=== PATIENT | female | born 1930 | race Caucasian/White ===

== ENCOUNTER 2018-07-22 18:40 | Inpatient (IN) | payer OTHER ==
[~2018-07-22] VITALS: Ht 157.5 cm; Wt 47.2 kg
[~2018-07-22 18:40] MED LIST: ADVIL200 MG PO; AMLODIPINE BES2.5 M1 PO; APAP/HYDROCODON1 T13 PO; ASPIR-LOW81 M1 PO; ASPIRIN81 MG PO; ATENOLOL100 MG PO; ATENOLOL25 MG; ATENOLOL25 MG PO; CLARITIN10 MG; CLARITIN10 MG PO; COL100 PO; COLACE100 MG PO; COQ10 IN OIL1 SGL PO; COZ50 PO; COZAAR25 MG PO; ESCITALOPRAM10 M1 PO; FER300 PO; FERROUS SULFAT325 M2 PO; GLU500 PO; GLUCOSE PO; IBUPROFEN400 MG PO; LAC PO; LEVAQUIN750 MG PO; LEXAPRO10 MG PO; LOSARTAN POTASS25 M1 PO; METFORMIN ER500 M1 PO; NAMENDA10 M2 PO; NOR10 PO; NORCO1 TA2 PO; PRI20 PO; PROTONIX20 MG PO; SIMVASTATIN10 M1 PO; TEN50 PO; TENORMIN25 MG; TRE400 PO; VITAMIN D32000 I2 PO; ZOC20 PO
[2018-07-22 18:41] VITALS: Ht 157.5 cm; Wt 47.2 kg
[2018-07-22 19:56] LABS: BASOPHIL % 0.3 % (0-2)
[2018-07-22 19:58] LABS: PLATELET COUNT 484 x10^3mcL (130-400); RED CELL DISTRIBUTION WIDTH 23.2 % (11.5-14.5)
[2018-07-22 20:15] LABS: ALKALINE PHOSPHATASE 99 U/L (46-116); ALT/SGPT 9 U/L (14-59); AST/SGOT 27 U/L (15-37); BILIRUBIN TOTAL 0.29 mg/dL (0.20-1.00); CALCIUM 9.5 mg/dL (8.5-10.1); CHLORIDE SERUM 101 mmol/L (98-107); GLUCOSE SERUM 118 mg/dL (74-106); SODIUM SERUM 139 mmol/L (136-145); TOTAL PROTEIN, SERUM 6.8 g/dL (6.4-8.2)
[2018-07-22 20:18] LABS: ALBUMIN 2.5 g/dL (3.4-5.0)
[2018-07-22 20:19] LABS: POTASSIUM SERUM 6.3 mmol/L (3.5-5.1)
[2018-07-22 20:20] LABS: CREATININE SERUM 5.7 mg/dL (0.6-1.0)
[2018-07-22 20:30] LABS: CARBON DIOXIDE < 5.0 mmol/L (21-32)
[2018-07-22 20:40] LABS: LIPASE 3326 IU/L (73-393)
[2018-07-22] MEDS ORDERED: CRANBERRY500 M1 (22:40)
[2018-07-22] MEDS ORDERED: NEU300 PO (22:41)
[2018-07-22] MEDS ORDERED: ACETAMINOP160 MG/52 PO (22:42)
[2018-07-22] MEDS ORDERED: LORAZEPAM0.5 MG PO (22:43)
[2018-07-22 23:27] LABS: CALCIUM 8.5 mg/dL (8.5-10.1); CHLORIDE SERUM 104 mmol/L (98-107); GLUCOSE SERUM 126 mg/dL (74-106); SODIUM SERUM 140 mmol/L (136-145)
[2018-07-22 23:40] LABS: POTASSIUM SERUM 6.4 mmol/L (3.5-5.1)
[2018-07-22 23:41] LABS: CARBON DIOXIDE < 5.0 mmol/L (21-32); CREATININE SERUM 5.3 mg/dL (0.6-1.0)
[2018-07-23 00:25] VITALS: BP 93/47
[2018-07-23 00:26] VITALS: BP 93/47
[2018-07-23 02:32] LABS: microscopic required? YES; urine erythrocyte 3+ (NEGATIVE)
[2018-07-23 04:00] VITALS: BP 91/35
[2018-07-23 05:23] LABS: BASOPHIL % 0.3 % (0-2)
[2018-07-23 05:27] LABS: PLATELET COUNT 458 x10^3mcL (130-400); RED CELL DISTRIBUTION WIDTH 22.7 % (11.5-14.5)
[2018-07-23 07:45] VITALS: BP 90/41
[2018-07-23 08:48] LABS: CALCIUM 8.1 mg/dL (8.5-10.1); CHLORIDE SERUM 102 mmol/L (98-107); GLUCOSE SERUM 386 mg/dL (74-106); MAGNESIUM 1.8 mg/dL (1.8-2.4); PHOSPHOROUS 7.7 mg/dL (2.5-4.9); SODIUM SERUM 139 mmol/L (136-145)
[2018-07-23 08:59] LABS: CARBON DIOXIDE 1.8 mmol/L (21-32); CREATININE SERUM 5.4 mg/dL (0.6-1.0)
[2018-07-23 11:17] VITALS: BP 103/44
[2018-07-23 15:46] VITALS: BP 90/43
[2018-07-24 07:57] VITALS: BP 43/24
[2018-07-30 06:03] LABS: CK-BB 0 % (0); CK-MB 0 % (0-3); CK-MM 100 % (97-100); MACRO TYPE 1 0 % (Not Observed); MACRO TYPE 2 0 % (Not Observed)
== END 2018-07-24 14:05 | disposition expired | DRG 871 ==
LOC: ED 18:40 → IC 22:35
PROVIDERS: Emergency Medicine; Internal Medicine; Internal Medicine Gastroenterology; Internal Medicine Nephrology
DX: A41.9 Sepsis, unspecified organism (principal); R65.21 Severe sepsis with septic shock; N17.0 Acute kidney failure with tubular necrosis; J96.00 Acute respiratory failure, unspecified whether with hypoxia or hypercapnia; J18.9 Pneumonia, unspecified organism; K85.90 Acute pancreatitis without necrosis or infection, unspecified; Z68.1 Body mass index [BMI] 19.9 or less, adult; E87.4 Mixed disorder of acid-base balance; N39.0 Urinary tract infection, site not specified; R64 Cachexia; E11.9 Type 2 diabetes mellitus without complications; E87.5 Hyperkalemia; E86.0 Dehydration; K52.9 Noninfective gastroenteritis and colitis, unspecified; Z66 Do not resuscitate; Z51.5 Encounter for palliative care; Z79.84 Long term (current) use of oral hypoglycemic drugs
CPT/HCPCS: 36569; 82962; J0610; J1170; J1885; J2270; J2543; J3490; J7030; J7042; Q0092